=== PATIENT | female | born 1975 | race Caucasian/White ===

== ENCOUNTER 2017-05-22 11:27 | Emergency (ER) | payer BC, OTHER ==
[~2017-05-22] VITALS: Ht 165.1 cm; Wt 128.0 kg
[~2017-05-22 11:27] MED LIST: ALPR0.5T9 PO; AZIT250T PO; CEPH-571 PO; CLIN-80 PO; LEG1EACH88 EXT; LORA10TA65 PO; NAPR375T PO; ONDA8TAB9 PO; OXYC-145 PO
[2017-05-22 12:34] LABS: BASOPHILS % (AUTO) 0.2 % (0-1); EOSINOPHILS # (AUTO) 0.1 X10'3 (0-0.9); EOSINOPHILS % (AUTO) 1.1 % (0-6); HEMOGLOBIN 14.3 g/dl (12.0-16.0); LYMPHOCYTES # (AUTO) 0.6 X10'3 (1.1-4.8); LYMPHOCYTES % (AUTO) 6.8 % (21-51); MEAN CORPUSCULAR HEMOGLOBIN 30.8 PG (27.0-31.0); MEAN CORPUSCULAR VOLUME 90.6 FL (78-98); MEAN PLATELET VOLUME 8.4 FL (7.4-10.4); MONOCYTES # (AUTO) 0.4 X10'3 (0-0.9); MONOCYTES % (AUTO) 4.9 % (2-12); NEUTROPHILS # (AUTO) 7.4 X10'3 (1.8-7.7); PLATELET COUNT 237 X10'3 (140-440); RED BLOOD COUNT 4.64 X10'6 (4.20-5.60); RED CELL DISTRIBUTION WIDTH 12.9 % (11.5-14.5); WHITE BLOOD COUNT 8.5 X10'3 (4.5-11.0)
[2017-05-22 12:50] LABS: ALANINE AMINOTRANSFERASE 33 U/L (12-78); ALBUMIN 3.7 G/DL (3.4-5.0); ALBUMIN/GLOBULIN RATIO 0.9 (1.1-1.5); ALKALINE PHOSPHATASE 104 IU/L (46-116); ANION GAP 7 (8-16); ASPARTATE AMINO TRANSFERASE 20 U/L (10-37); BILIRUBIN,TOTAL 0.4 MG/DL (0.1-1.0); BLOOD UREA NITROGEN 9 MG/DL (7-18); CALCIUM 8.7 MG/DL (8.5-10.1); CHLORIDE 103 MMOL/L (99-107); CREATININE 0.69 MG/DL (0.40-0.90); GLUCOSE 187 MG/DL (70-104); POTASSIUM 4.1 MMOL/L (3.5-5.1); SODIUM 137 MMOL/L (135-145); TOTAL CARBON DIOXIDE 26.7 MMOL/L (24-32); TOTAL PROTEIN 7.7 G/DL (6.4-8.2); eGFR > 90 ML/MIN
[2017-05-22] MEDS ORDERED: ibuprofen 200mg tablet PO ONE (14:05)
[2017-05-22 15:27] VITALS: BP 151/91
== END 2017-05-22 15:29 | disposition home or self-care (01) ==
LOC: ER 11:28
DX: J11.1 Influenza due to unidentified influenza virus with other respiratory manifestations (principal); E11.9 Type 2 diabetes mellitus without complications; Z79.899 Other long term (current) drug therapy; Z88.8 Allergy status to other drugs, medicaments and biological substances; Z87.442 Personal history of urinary calculi
CPT/HCPCS: 36415; 71046; 80053; 85025; 87502; 87503; 99285

== ENCOUNTER 2017-12-27 21:21 | Emergency (ER) | payer BC, MEDICAID ==
[~2017-12-27] VITALS: Ht 165.1 cm; Wt 134.0 kg
[~2017-12-27 21:21] MED LIST changes: -CLIN-80 PO; +CLIN300C85 PO
[2017-12-27] MEDS ORDERED: ondansetron/PF 4mg/2ml inj IV ONE (22:05)
[2017-12-27] MEDS ORDERED: normal saline 1000ML IV soln IVB ONE (22:05)
[2017-12-27] MEDS ORDERED: morphine 4 MG/ML inj SYRINge IV PRN (22:05)
[2017-12-27 22:13] LABS: CLARITY,URINE CLEAR (Clear); COLOR,URINE YELLOW (Yellow); GLUCOSE, URINE NEGATIVE (Neg); KETONES,URINE NEGATIVE (Neg); LEUKOCYTE ESTERASE ,URINE NEGATIVE (Neg); NITRITES, URINE NEGATIVE (Neg); OCCULT BLOOD,URINE NEGATIVE (Neg); PROTEIN,URINE NEGATIVE (Neg); UROBILINOGEN,URINE 0.2 E.U/dL (0.2-1.0)
[2017-12-27 22:14] LABS: URINE HCG NEGATIVE (NEG)
[2017-12-27 22:17] LABS: UA COLLECTION TYPE VOIDED
[2017-12-27 22:22] LABS: BASOPHILS # (AUTO) 0.1 X10'3 (0-0.2); BASOPHILS % (AUTO) 0.7 % (0-1); EOSINOPHILS # (AUTO) 0.1 X10'3 (0-0.9); EOSINOPHILS % (AUTO) 1.4 % (0-6); HEMATOCRIT 42.1 % (35.0-45.0); HEMOGLOBIN 14.1 g/dl (12.0-16.0); LYMPHOCYTES # (AUTO) 3.4 X10'3 (1.1-4.8); LYMPHOCYTES % (AUTO) 35.5 % (21-51); MEAN CORPUSCULAR HEMOGLOBIN 30.4 PG (27.0-31.0); MEAN CORPUSCULAR HGB CONC 33.5 % (33.0-36.5); MEAN CORPUSCULAR VOLUME 90.7 FL (78-98); MEAN PLATELET VOLUME 8.5 FL (7.4-10.4); MONOCYTES # (AUTO) 0.5 X10'3 (0-0.9); MONOCYTES % (AUTO) 5.3 % (2-12); NEUTROPHILS # (AUTO) 5.5 X10'3 (1.8-7.7); NEUTROPHILS % (AUTO) 57.1 % (42-75); PLATELET COUNT 339 X10'3 (140-440); RED BLOOD COUNT 4.64 X10'6 (4.20-5.60); RED CELL DISTRIBUTION WIDTH 12.4 % (11.5-14.5); WHITE BLOOD COUNT 9.6 X10'3 (4.5-11.0)
[2017-12-27 22:37] LABS: ALANINE AMINOTRANSFERASE 36 U/L (12-78); ALBUMIN 3.8 G/DL (3.4-5.0); ALKALINE PHOSPHATASE 102 IU/L (46-116); ANION GAP 8 (8-16); ASPARTATE AMINO TRANSFERASE 14 U/L (10-37); BILIRUBIN,TOTAL 0.3 MG/DL (0.1-1.0); BLOOD UREA NITROGEN 12 MG/DL (7-18); BUN/CREATININE RATIO 12.6 (6.6-38.0); CALCIUM 9.1 MG/DL (8.5-10.1); CHLORIDE 102 MMOL/L (99-107); CREATININE 0.95 MG/DL (0.40-0.90); GLUCOSE 142 MG/DL (70-104); LIPASE 142 U/L (73-393); POTASSIUM 3.5 MMOL/L (3.5-5.1); SODIUM 138 MMOL/L (135-145); TOTAL CARBON DIOXIDE 28.3 MMOL/L (24-32); TOTAL PROTEIN 7.8 G/DL (6.4-8.2); eGFR 65 ML/MIN
[2017-12-27] MEDS ORDERED: morphine 4 MG/ML inj SYRINge IV ONE ×2 (22:55→23:00)
[2017-12-27] MEDS ORDERED: HYDR-3965 PO (23:28)
[2017-12-27] MEDS ORDERED: ketorolac trometh. 30mg/ml inj. IV ONE (23:35)
[2017-12-27 23:57] VITALS: BP 143/91
== END 2017-12-28 00:04 | disposition home or self-care (01) ==
LOC: ER 21:22
DX: N23 Unspecified renal colic (principal); E11.9 Type 2 diabetes mellitus without complications; Z98.890 Other specified postprocedural states; Z88.8 Allergy status to other drugs, medicaments and biological substances; Z79.2 Long term (current) use of antibiotics; Z79.899 Other long term (current) drug therapy
CPT/HCPCS: 36415; 74176; 80053; 81003; 81025; 83690; 85025; 96374; 96375; 96376; 99285; J1885; J2270; J2405; J7030

== ENCOUNTER 2018-03-18 23:10 | Emergency (ER) | payer MEDICAID ==
[~2018-03-18] VITALS: Ht 162.6 cm; Wt 131.0 kg
[2018-03-18 23:43] LABS: BASOPHILS % (AUTO) 0.4 % (0-1); EOSINOPHILS # (AUTO) 0.2 X10'3 (0-0.9); EOSINOPHILS % (AUTO) 1.7 % (0-6); HEMATOCRIT 41.1 % (35.0-45.0); HEMOGLOBIN 13.9 g/dl (12.0-16.0); LYMPHOCYTES # (AUTO) 3.3 X10'3 (1.1-4.8); LYMPHOCYTES % (AUTO) 29.7 % (21-51); MEAN CORPUSCULAR HEMOGLOBIN 30.9 PG (27.0-31.0); MEAN CORPUSCULAR HGB CONC 33.8 % (33.0-36.5); MEAN CORPUSCULAR VOLUME 91.3 FL (78-98); MEAN PLATELET VOLUME 8.1 FL (7.4-10.4); MONOCYTES # (AUTO) 0.8 X10'3 (0-0.9); NEUTROPHILS # (AUTO) 6.8 X10'3 (1.8-7.7); NEUTROPHILS % (AUTO) 61.2 % (42-75); PLATELET COUNT 357 X10'3 (140-440); RED CELL DISTRIBUTION WIDTH 13.1 % (11.5-14.5); WHITE BLOOD COUNT 11.2 X10'3 (4.5-11.0)
[2018-03-18 23:56] LABS: ANION GAP 8 (8-16); BILIRUBIN,TOTAL 0.4 MG/DL (0.1-1.0); BLOOD UREA NITROGEN 12 MG/DL (7-18); CALCIUM 9.5 MG/DL (8.5-10.1); CHLORIDE 103 MMOL/L (99-107); CREATININE 0.86 MG/DL (0.40-0.90); GLUCOSE 237 MG/DL (70-104); POTASSIUM 3.4 MMOL/L (3.5-5.1); SODIUM 139 MMOL/L (135-145); TOTAL CARBON DIOXIDE 27.6 MMOL/L (24-32); TOTAL PROTEIN 7.7 G/DL (6.4-8.2); eGFR 73 ML/MIN
[2018-03-18 23:57] LABS: ALANINE AMINOTRANSFERASE 35 U/L (12-78); ALBUMIN 3.7 G/DL (3.4-5.0); ALBUMIN/GLOBULIN RATIO 0.9 (1.1-1.5); ALKALINE PHOSPHATASE 103 IU/L (46-116); ASPARTATE AMINO TRANSFERASE 15 U/L (10-37)
[2018-03-19] LABS: PROTHROMBIN TIME 10.5 SECONDS (9.0-12.0)
[2018-03-19 00:46] LABS: CLARITY,URINE CLEAR (Clear); COLOR,URINE YELLOW (Yellow); GLUCOSE, URINE 250 mg/dl (Neg); KETONES,URINE TRACE mg/dl (Neg); LEUKOCYTE ESTERASE ,URINE NEGATIVE (Neg); NITRITES, URINE NEGATIVE (Neg); OCCULT BLOOD,URINE LARGE (Neg); PH,URINE 5.5 (4.8-8.0); PROTEIN,URINE NEGATIVE (Neg); UROBILINOGEN,URINE 0.2 E.U/dL (0.2-1.0)
[2018-03-19 00:47] LABS: URINE HCG NEGATIVE (NEG)
[2018-03-19 00:51] LABS: UA COLLECTION TYPE VOIDED
[2018-03-19 00:53] LABS: RBC,URINE 20-50 /HPF (0-2); WBC,URINE 0-4 /HPF (0-4)
[2018-03-19 00:54] LABS: BACTERIA,URINE 1+ /HPF (Neg); SQUAMOUS EPITHELIAL CELL,UR MANY /LPF (FEW)
[2018-03-19 00:55] LABS: MUCUS STRANDS MANY /LPF (Neg)
[2018-03-19 01:04] VITALS: BP 142/75
[2018-03-19] MEDS ORDERED: ketorolac trometh. 30mg/ml inj. IV ONE (01:20)
[2018-03-19] MEDS ORDERED: morphine 4 MG/ML inj SYRINge IV ONE (01:20)
[2018-03-19] MEDS ORDERED: ondansetron/PF 4mg/2ml inj IV ONE ×2 (01:20)
[2018-03-19] MEDS ORDERED: ONDA4TAB9 PO (02:42)
[2018-03-19] MEDS ORDERED: IBUP-1986 PO (02:42)
== END 2018-03-19 02:53 | disposition home or self-care (01) ==
LOC: ER 23:10
DX: N23 Unspecified renal colic (principal); E11.9 Type 2 diabetes mellitus without complications; F41.9 Anxiety disorder, unspecified; Z87.442 Personal history of urinary calculi; Z88.8 Allergy status to other drugs, medicaments and biological substances; Z79.899 Other long term (current) drug therapy
CPT/HCPCS: 36415; 74176; 80053; 81001; 81025; 85025; 85610; 96374; 96375; 96376; 99285; J1885; J2270; J2405

== ENCOUNTER 2021-03-28 07:14 | Day surgery (SDC) | payer MEDICAID ==
[2021-03-22 12:16] LABS: BASOPHILS % (AUTO) 0.3 % (0-1); EOSINOPHILS # (AUTO) 0.1 X10'3 (0-0.9); EOSINOPHILS % (AUTO) 0.9 % (0-6); LYMPHOCYTES # (AUTO) 2.2 X10'3 (1.1-4.8); MEAN CORPUSCULAR HGB CONC 33.9 g/dL (33.0-36.5); MEAN CORPUSCULAR VOLUME 91.3 FL (78-98); MEAN PLATELET VOLUME 8.6 FL (7.4-10.4); MONOCYTES # (AUTO) 0.4 X10'3 (0-0.9); MONOCYTES % (AUTO) 6.8 % (2-12); NEUTROPHILS # (AUTO) 3.8 X10'3 (1.8-7.7); PRE OP HEMATOCRIT 41.9 % (35.0-45.0); PRE OP HEMOGLOBIN 14.2 g/dL (12.0-16.0); PRE OP PLATELET COUNT 310 X10'3 (140-440); RED CELL DISTRIBUTION WIDTH 12.9 % (11.5-14.5)
[2021-03-22 12:23] LABS: ALBUMIN 3.6 G/DL (3.4-5.0); ALBUMIN/GLOBULIN RATIO 0.9 (1.1-1.5); ALKALINE PHOSPHATASE 105 IU/L (46-116); BLOOD UREA NITROGEN 9 MG/DL (7-18); BUN/CREATININE RATIO 13.4 (6.6-38.0); CALCIUM 8.7 MG/DL (8.5-10.1); CHLORIDE 105 MMOL/L (99-107); CREATININE 0.67 MG/DL (0.40-0.90); HCG SERUM QL NEGATIVE; PRE OP ALT 39 U/L (30-65); PRE OP ANION GAP 11 (8-16); PRE OP AST 15 U/L (10-37); PRE OP BILIRUB, TOTAL 0.4 MG/DL (0.0-1.0); PRE OP GLUCOSE 192 MG/DL (70-104); PRE OP POTASSIUM 3.9 MMOL/L (3.4-5.1); PRE OP SODIUM 142 MMOL/L (135-145); TOTAL PROTEIN 7.6 G/DL (6.4-8.2); eGFR > 90 ML/MIN
[~2021-03-28] VITALS: Ht 162.6 cm; Wt 136.9 kg
[2021-03-28] VITALS (10 sets, daily range): BP systolic 131–155; BP diastolic 78–88
[~2021-03-28 07:14] MED LIST changes: -AZIT250T PO; -CEPH-571 PO; -CLIN300C85 PO; -LEG1EACH88 EXT; -LORA10TA65 PO; -NAPR375T PO; -ONDA8TAB9 PO; -OXYC-145 PO; +VANCOMYCIN 1,500MG inj. 1,500 MG in normal saline 500ml IV soln 300 ML IV ONE; +ceFAZolin inj. 3,000 MG in normal saline 100ml IV soln 100 ML IV ONE; +famotidine 20mg tablet PO ONE; +ringers solution, lacted 1,000 ML IV SCH
[2021-03-28] MEDS ORDERED: BUPIVAcaine/PF 2.5 mg/ml (0.25%) 30ml vial ONE (08:50)
[2021-03-28] MEDS ORDERED: triamcinolone acetonide 40mg/ml inj ONE (08:51)
[2021-03-28] MEDS ORDERED: succinylcholine 20mg/ml inj IV ONE (09:00)
[2021-03-28] MEDS ORDERED: LIDOcaine 2% (20mg/ml) 5ml vial ONE ×3 (09:00→09:01)
[2021-03-28] MEDS ORDERED: propofol inj 20 ML IV ONE (09:01)
[2021-03-28] MEDS ORDERED: MIDAZolam 1 MG/ML 5ML VIAL ONE (09:03)
[2021-03-28] MEDS ORDERED: fentaNYL/PF 50MCG/1 ML 2ML syringe ONE (09:03)
[2021-03-28] MEDS ORDERED: dexamethasone sod phosphate 4mg/ml inj. ONE (09:51)
[2021-03-28] MEDS ORDERED: ondansetron/PF 4mg/2ml inj ONE (09:53)
[2021-03-28] MEDS ORDERED: labetalol 20mg/4ml (5mg/ml) syringe IV ONE (09:55)
[2021-03-28] MEDS ORDERED: hydrALAZINE 20mg/ml inj. IV PRN (10:10)
[2021-03-28] MEDS ORDERED: morphine 2 MG/ML inj. syringe IV PRN (10:10)
[2021-03-28] MEDS ORDERED: ringers solution, lacted 1,000 ML IV SCH (10:10)
[2021-03-28] MEDS ORDERED: ondansetron/PF 4mg/2ml inj IV PRN (10:10)
[2021-03-28] MEDS ORDERED: fentaNYL/PF 50MCG/1 ML 2ML syringe IV PRN ×2 (10:10)
[2021-03-28] MEDS ORDERED: labetalol 20mg/4ml (5mg/ml) syringe IV PRN (10:10)
--- NOTE | 2021-03-28 10:49 | NUR ---
Received from OR via [facility] , accompanied by Anesthesiologist CHAPITO and report given by Anesthesiolgist. PATIENT WITH 20G PIV IN LEFT UE RUNNING LR AT 10. MEDICATED FOR PAIN UPON ARRIVAL . VSS. BIAS DRESSING TO LEFT KNEE. + DP TO LEFT FOOT. Addendum: 03/28/21 at 1057 by Nahid Self RN, RN Amended: Links added.
[2021-03-28] MEDS: morphine 4 MG/ML inj SYRINge IV PRN ×2 (10:52→11:33)
[2021-03-28] MEDS ORDERED: HYDROcodone/acetaminophen 10/325mg tab PO ONE (11:25)
--- NOTE | 2021-03-28 12:39 | NUR ---
ALL DISCHARGE CRITERIA HAS BEEN MET. VSS, PAIN AT A TOLERABLE LEVEL, VOIDING AND ABLE TO SAFELY TRANSFER SELF. IV TAKEN OUT WITHOUT ANY COMPLICATIONS. ALL DISCHARGE INSTRUCTIONS COVERED WITH PATIENT AND ALL QUESTIONS ANSWERED. PATIENT TAKEN OUT VIA WHEELCHAIR TO PERSONAL VEHICLE WHERE FAMILY/FRIEND DROVE PATIENT HOME. Addendum: 03/28/21 at 1252 by Nahid Self RN, RN Amended: Links added.
== END 2021-03-28 12:39 | disposition home or self-care (01) ==
LOC: PAS 07:14
PROVIDERS: ATTEND Orthopaedic Surgery
DX: S83.232A Complex tear of medial meniscus, current injury, left knee, initial encounter (principal); S83.272A Complex tear of lateral meniscus, current injury, left knee, initial encounter; M17.12 Unilateral primary osteoarthritis, left knee; M94.262 Chondromalacia, left knee; F40.01 Agoraphobia with panic disorder; F41.9 Anxiety disorder, unspecified; E66.01 Morbid (severe) obesity due to excess calories; Z68.43 Body mass index [BMI] 50.0-59.9, adult; E11.59 Type 2 diabetes mellitus with other circulatory complications; Z79.899 Other long term (current) drug therapy; Z20.822 Contact with and (suspected) exposure to COVID-19; Z88.8 Allergy status to other drugs, medicaments and biological substances; Z72.89 Other problems related to lifestyle; Z98.890 Other specified postprocedural states; X58.XXXA Exposure to other specified factors, initial encounter; Y93.89 Activity, other specified; Y92.89 Other specified places as the place of occurrence of the external cause; Y99.8 Other external cause status
CPT/HCPCS: 29873; 29879; 29880; 36415; 80053; 82948; 84703; 85025; 93005; J0330; J0690; J1100; J2001; J2250; J2270; J2405; J2704; J3010; J3301; J3370; J3490; J7040; U0003; U0005; Z7506; Z7508; Z7512; A4215; A4618; A6250; A6449; A7000; J7120

== ENCOUNTER 2021-05-03 13:58 | Inpatient (IN) | payer MEDICAID ==
[~2021-05-03] VITALS: Ht 162.6 cm; Wt 125.0 kg
[~2021-05-03 13:58] MED LIST changes: -VANCOMYCIN 1,500MG inj. 1,500 MG in normal saline 500ml IV soln 300 ML IV ONE; -ceFAZolin inj. 3,000 MG in normal saline 100ml IV soln 100 ML IV ONE; -famotidine 20mg tablet PO ONE; -ringers solution, lacted 1,000 ML IV SCH
[2021-05-03 15:43] LABS: BASOPHILS % (AUTO) 0.3 % (0-1); EOSINOPHILS % (AUTO) 0.6 % (0-6); HEMATOCRIT 40.5 % (35.0-45.0); LYMPHOCYTES # (AUTO) 1.9 X10'3 (1.1-4.8); LYMPHOCYTES % (AUTO) 25.2 % (21-51); MEAN CORPUSCULAR HEMOGLOBIN 31.3 PG (27.0-31.0); MEAN CORPUSCULAR HGB CONC 34.5 g/dL (33.0-36.5); MEAN CORPUSCULAR VOLUME 90.6 FL (78-98); MEAN PLATELET VOLUME 8.6 FL (7.4-10.4); MONOCYTES # (AUTO) 0.5 X10'3 (0-0.9); MONOCYTES % (AUTO) 6.6 % (2-12); NEUTROPHILS % (AUTO) 67.3 % (42-75); PLATELET COUNT 337 X10'3 (140-440); RED BLOOD COUNT 4.47 X10'6 (4.20-5.60); RED CELL DISTRIBUTION WIDTH 12.8 % (11.5-14.5); WHITE BLOOD COUNT 7.5 X10'3 (4.5-11.0)
[2021-05-03 15:54] LABS: ALANINE AMINOTRANSFERASE 32 U/L (12-78); ALBUMIN 3.8 G/DL (3.4-5.0); ALKALINE PHOSPHATASE 110 IU/L (46-116); ANION GAP 10 (8-16); ASPARTATE AMINO TRANSFERASE 14 U/L (10-37); BILIRUBIN,TOTAL 0.5 MG/DL (0.1-1.0); BLOOD UREA NITROGEN 12 MG/DL (7-18); BUN/CREATININE RATIO 17.9 (6.6-38.0); CALCIUM 9.1 MG/DL (8.5-10.1); CHLORIDE 102 MMOL/L (99-107); CREATININE 0.67 MG/DL (0.40-0.90); GLUCOSE 175 MG/DL (70-104); POTASSIUM 3.9 MMOL/L (3.5-5.1); SODIUM 139 MMOL/L (135-145); TOTAL CARBON DIOXIDE 27.1 MMOL/L (24-32); TOTAL PROTEIN 7.7 G/DL (6.4-8.2); eGFR > 90 ML/MIN
[2021-05-03] MEDS ORDERED: aspirin 81mg tab.chew PO ONE (20:15)
--- NOTE | 2021-05-03 20:45 | NUR ---
Pt placed in room 10.
[2021-05-03] MEDS ORDERED: temazepam 15mg capsule PO PRN (21:00)
[2021-05-03] MEDS ORDERED: iohexol 350MG/ML 100ml bottle IV ONE (21:04)
[2021-05-03] MEDS ORDERED: LORazepam 2 mg/ml vial IV ONE (21:15)
[2021-05-03] MEDS ORDERED: heparin 10,000 units/1 ML INJ IV PRN ×2 (22:15→22:30)
[2021-05-03] MEDS ORDERED: heparin 10,000 units/1 ML INJ IV ONE ×2 (22:15→22:20)
[2021-05-03] MEDS ORDERED: glucagon, human recombinant 1mg kit SUBCUT PRN (22:30)
[2021-05-03] MEDS ORDERED: magnesium 4gm in 100ml NS 100 ML IV PRN (22:30)
[2021-05-03] MEDS ORDERED: morphine 2 MG/ML inj. syringe IV PRN ×2 (22:30)
[2021-05-03] MEDS ORDERED: MESSAGE TO PHARMACY PO ONE (22:30)
[2021-05-03] MEDS ORDERED: nitroGLYCERIN 0.4mg SUBLingual tab SL PRN (22:30)
[2021-05-03] MEDS ORDERED: HYDROcodone/acetaminophen 10/325mg tab PO PRN (22:30)
[2021-05-03] MEDS ORDERED: potassium Cl 20 mEq SR tablet PO PRN (22:30)
[2021-05-03] MEDS ORDERED: dextrose ORAL solution 15 GM/59 ML bottle PO PRN ×2 (22:30)
[2021-05-03] MEDS ORDERED: heparin 25,000 UNIT/250ml bag 250 ML IV SCH (22:30)
[2021-05-03] MEDS ORDERED: acetaminophen 325mg tablet PO PRN ×2 (22:30)
[2021-05-03] MEDS ORDERED: potassium CL 10mEq/100ml bag 100 ML IV PRN (22:30)
[2021-05-03] MEDS ORDERED: dextrose 50%-water 50ml dispensing syringe IV PRN ×2 (22:30)
[2021-05-03] MEDS ORDERED: aminophylline 250mg/10ml inj. IV PRN (22:30)
[2021-05-03] MEDS ORDERED: magnesium 2GM in 50ml NS 50 ML IV PRN (22:30)
[2021-05-03] MEDS ORDERED: regadenoson 0.4mg/5ml syringe IV PRN (22:30)
[2021-05-03] MEDS ORDERED: magnesium Cl slow-release 64mg tablet PO PRN (22:30)
[2021-05-03] MEDS ORDERED: magnesium hydroxide 30ml (MOM) UD suspension PO PRN (22:30)
[2021-05-03] MEDS ORDERED: ondansetron/PF 4mg/2ml inj IV PRN (22:30)
[2021-05-03] MEDS ORDERED: metoprolol tartrate 1mg/ml inj IV PRN (22:30)
[2021-05-03] MEDS ORDERED: HYDROcodone/acetaminophen 5mg/325mg tablet PO PRN (22:30)
[2021-05-03 23:07] LABS: HEMOGLOBIN A1C 7.7 % (4.5-6.2)
[2021-05-04] MEDS: heparin 25,000 UNIT/250ml bag 250 ML IV SCH ×3 (00:07→23:15)
[2021-05-04 00:49] LABS: PARTIAL THROMBOPLASTIN TIME 27 SECONDS (22-32)
[2021-05-04] MEDS: normal saline 1000ml 1,000 ML IV SCH ×3 (01:22→18:30)
--- NOTE | 2021-05-04 07:34 | NUR ---
Nuclear Medicine requires additional troponin for ECHO study today; order placed.
[2021-05-04] MEDS: pantoprazole 40mg Tablet.DR PO SCH (07:50)
[2021-05-04] MEDS: K and/or MAG REPLACEMENT MC SCH ×2 (08:00→20:00)
[2021-05-04] MEDS ORDERED: PERFLUTREN PROTEIN-A MICROSPHR (Optison) 0.22 MG/ML 3ML VIAL IV ONE (08:00)
--- NOTE | 2021-05-04 08:37 | NUR ---
PTT and Troponin drawn
[2021-05-04 09:04] LABS: PARTIAL THROMBOPLASTIN TIME 31 SECONDS (22-32)
[2021-05-04 09:06] LABS: ALANINE AMINOTRANSFERASE 32 U/L (12-78); ALBUMIN 3.4 G/DL (3.4-5.0); ALKALINE PHOSPHATASE 95 IU/L (46-116); ANION GAP 11 (8-16); ASPARTATE AMINO TRANSFERASE 27 U/L (10-37); BILIRUBIN,TOTAL 0.4 MG/DL (0.1-1.0); BLOOD UREA NITROGEN 12 MG/DL (7-18); BUN/CREATININE RATIO 18.2 (6.6-38.0); CALCIUM 8.3 MG/DL (8.5-10.1); CHLORIDE 104 MMOL/L (99-107); CREATININE 0.66 MG/DL (0.40-0.90); GLUCOSE 202 MG/DL (70-104); POTASSIUM 3.7 MMOL/L (3.5-5.1); SODIUM 140 MMOL/L (135-145); TOTAL CARBON DIOXIDE 25.1 MMOL/L (24-32); TOTAL PROTEIN 6.8 G/DL (6.4-8.2); eGFR > 90 ML/MIN
--- NOTE | 2021-05-04 09:49 | NUR ---
ECHO called: unable to do ECHO until troponin is trending down. Attending to be notified.
[2021-05-04 18:00] LABS: BASOPHILS # (AUTO) 0.1 X10'3 (0-0.2); BASOPHILS % (AUTO) 1.2 % (0-1); EOSINOPHILS # (AUTO) 0.1 X10'3 (0-0.9); EOSINOPHILS % (AUTO) 0.8 % (0-6); HEMATOCRIT 40.2 % (35.0-45.0); LYMPHOCYTES # (AUTO) 2.7 X10'3 (1.1-4.8); LYMPHOCYTES % (AUTO) 43.4 % (21-51); MEAN CORPUSCULAR HEMOGLOBIN 31.6 PG (27.0-31.0); MEAN CORPUSCULAR HGB CONC 34.7 g/dL (33.0-36.5); MEAN PLATELET VOLUME 8.7 FL (7.4-10.4); MONOCYTES # (AUTO) 0.4 X10'3 (0-0.9); MONOCYTES % (AUTO) 6.4 % (2-12); NEUTROPHILS % (AUTO) 48.2 % (42-75); PLATELET COUNT 318 X10'3 (140-440); RED BLOOD COUNT 4.42 X10'6 (4.20-5.60); RED CELL DISTRIBUTION WIDTH 12.8 % (11.5-14.5); WHITE BLOOD COUNT 6.3 X10'3 (4.5-11.0)
[2021-05-04] MEDS: ALPRAZolam 0.5mg tablet PO PRN (19:00)
[2021-05-04] MEDS: insulin glargine (Lantus) pen - multi-dose SQ SCH (21:00)
--- NOTE | 2021-05-04 22:00 | NUR ---
Patient in room MED 309. I have received report from TONI RIVERS and had the opportunity to ask questions and assume patient care.
[2021-05-04 22:58] VITALS: BP 158/95
[2021-05-05] VITALS (12 sets, daily range): BP systolic 123–168; BP diastolic 68–99
--- NOTE | 2021-05-05 02:34 | NUR ---
309a sylvester davis-critical trop-730; has echo/barbara in am. , jennifer [id number]
[2021-05-05] MEDS: heparin 25,000 UNIT/250ml bag 250 ML IV SCH (03:36)
[2021-05-05] MEDS: normal saline 1000ml 1,000 ML IV SCH ×2 (04:30→17:25)
--- NOTE | 2021-05-05 06:24 | NUR ---
Problems reprioritized. Patient report given, questions answered & plan of care reviewed with Traci RIVERS.
--- NOTE | 2021-05-05 06:33 | NUR ---
Patient in room MED 309. I have received report from SILVESTRE Gonzalez and had the opportunity to ask questions and assume patient care.
[2021-05-05] MEDS: ALPRAZolam 0.5mg tablet PO PRN (07:14)
[2021-05-05] MEDS: pantoprazole 40mg Tablet.DR PO SCH (07:14)
[2021-05-05 07:35] LABS: BASOPHILS % (AUTO) 0.4 % (0-1); EOSINOPHILS # (AUTO) 0.1 X10'3 (0-0.9); EOSINOPHILS % (AUTO) 1.1 % (0-6); HEMATOCRIT 35.8 % (35.0-45.0); HEMOGLOBIN 12.5 g/dl (12.0-16.0); LYMPHOCYTES # (AUTO) 2.8 X10'3 (1.1-4.8); LYMPHOCYTES % (AUTO) 45.7 % (21-51); MEAN CORPUSCULAR HEMOGLOBIN 31.8 PG (27.0-31.0); MEAN CORPUSCULAR HGB CONC 34.8 g/dL (33.0-36.5); MEAN CORPUSCULAR VOLUME 91.5 FL (78-98); MEAN PLATELET VOLUME 9.1 FL (7.4-10.4); MONOCYTES # (AUTO) 0.6 X10'3 (0-0.9); NEUTROPHILS # (AUTO) 2.7 X10'3 (1.8-7.7); NEUTROPHILS % (AUTO) 43.8 % (42-75); PLATELET COUNT 297 X10'3 (140-440); RED BLOOD COUNT 3.92 X10'6 (4.20-5.60); RED CELL DISTRIBUTION WIDTH 13.1 % (11.5-14.5); WHITE BLOOD COUNT 6.2 X10'3 (4.5-11.0)
[2021-05-05 07:38] LABS: ALANINE AMINOTRANSFERASE 31 U/L (12-78); ALBUMIN 3.6 G/DL (3.4-5.0); ALKALINE PHOSPHATASE 95 IU/L (46-116); ANION GAP 11 (8-16); ASPARTATE AMINO TRANSFERASE 24 U/L (10-37); BILIRUBIN,TOTAL 0.3 MG/DL (0.1-1.0); BLOOD UREA NITROGEN 8 MG/DL (7-18); BUN/CREATININE RATIO 12.3 (6.6-38.0); CHLORIDE 103 MMOL/L (99-107); CREATININE 0.65 MG/DL (0.40-0.90); GLUCOSE 190 MG/DL (70-104); POTASSIUM 3.4 MMOL/L (3.5-5.1); SODIUM 139 MMOL/L (135-145); TOTAL CARBON DIOXIDE 25.2 MMOL/L (24-32); TOTAL PROTEIN 7.1 G/DL (6.4-8.2); eGFR > 90 ML/MIN
[2021-05-05] MEDS: K and/or MAG REPLACEMENT MC SCH ×2 (08:00→20:00)
[2021-05-05] MEDS ORDERED: aspirin 81mg, enteric-coated 1 TAB TABLET.DR PO SCH (08:00)
[2021-05-05] MEDS ORDERED: LORazepam 2 mg/ml vial IV ONE (09:05)
[2021-05-05 09:13] LABS: CHOL/HDL RATIO 4.3 (0.00-4.99); CHOLESTEROL 197 MG/DL (0-200); HDL CHOLESTEROL 46 MG/DL (35-60); LDL CHOLESTEROL 113 MG/DL (50-100); TRIGLYCERIDES 209 MG/DL (20-135)
[2021-05-05] MEDS ORDERED: regadenoson 0.4mg/5ml syringe IV PRN (10:55)
--- NOTE | 2021-05-05 11:41 | NUR ---
Noted pt with T2DM, fairly well controlled with A1c 7.7%. Per EMR DM is diet controlled and pt takes medications PRN. Attempted visit with pt at bedside however pt unavailable. Written DM education with RD contact information placed at patient's bedside. Will remain available. Addendum: 05/05/21 at [address] Amended: Links added.
[2021-05-05] MEDS: potassium Cl 20 mEq SR tablet PO PRN ×3 (12:45→21:19)
--- NOTE | 2021-05-05 14:37 | NUR ---
Note sent to Dr Saul: 309 [address]: please call nuc med perfusion imaging - critical result [phone]. thank you. Cheli RIVERS [id number]
--- NOTE | 2021-05-05 15:05 | NUR ---
msg sent to [facility] [address]: pt qualifies for insulin protocol now. please send insulin so i may start giving to pt as soon as possible. thank you. Cheli RIVERS [id number]
[2021-05-05 16:04] LABS: PARTIAL THROMBOPLASTIN TIME 67 SECONDS (22-32)
[2021-05-05] MEDS ORDERED: glucagon, human recombinant 1mg kit SUBCUT PRN (16:35)
[2021-05-05] MEDS ORDERED: dextrose 50%-water 50ml dispensing syringe IV PRN ×2 (16:35)
[2021-05-05] MEDS ORDERED: insulin Lispro (HumaLOG) vial - multi-dose SQ SCH (16:35)
[2021-05-05] MEDS ORDERED: dextrose ORAL solution 15 GM/59 ML bottle PO PRN ×2 (16:35)
[2021-05-05] MEDS ORDERED: MESSAGE TO PHARMACY PO ONE (16:35)
[2021-05-05] MEDS ORDERED: aspirin 81mg, enteric-coated 1 TAB TABLET.DR PO ONE (16:35)
--- NOTE | 2021-05-05 18:19 | NUR ---
Problems reprioritized. Patient report given, questions answered & plan of care reviewed with SILVESTRE Grove.
[2021-05-05] MEDS ORDERED: LORazepam 2 mg/ml vial IV PRN (18:35)
[2021-05-05] MEDS: insulin Lispro (HumaLOG) vial - multi-dose SQ SCH (18:43)
[2021-05-05] MEDS: LORazepam 1 MG tablet PO PRN ×2 (19:27→23:25)
[2021-05-05] MEDS: metoprolol tartrate 12.5mg (1/2 tablet) PO SCH (19:27)
[2021-05-05] MEDS ORDERED: insulin glargine (Lantus) pen - multi-dose SQ SCH (21:00)
[2021-05-05] MEDS: insulin glargine (Lantus) pen - multi-dose SQ SCH (21:19)
[2021-05-06] MEDS: heparin 25,000 UNIT/250ml bag 250 ML IV SCH (00:15)
[2021-05-06] MEDS: normal saline 1000ml 1,000 ML IV SCH (00:30)
[2021-05-06] MEDS ORDERED: temazepam 15mg capsule PO ONE (00:45)
[2021-05-06 04:51] LABS: BASOPHILS % (AUTO) 0.4 % (0-1); EOSINOPHILS # (AUTO) 0.1 X10'3 (0-0.9); EOSINOPHILS % (AUTO) 1.3 % (0-6); HEMATOCRIT 37.3 % (35.0-45.0); HEMOGLOBIN 12.6 g/dl (12.0-16.0); LYMPHOCYTES % (AUTO) 46.6 % (21-51); MEAN CORPUSCULAR HEMOGLOBIN 31.1 PG (27.0-31.0); MEAN CORPUSCULAR HGB CONC 33.9 g/dL (33.0-36.5); MEAN CORPUSCULAR VOLUME 91.8 FL (78-98); MEAN PLATELET VOLUME 8.4 FL (7.4-10.4); MONOCYTES # (AUTO) 0.6 X10'3 (0-0.9); NEUTROPHILS # (AUTO) 2.8 X10'3 (1.8-7.7); NEUTROPHILS % (AUTO) 42.7 % (42-75); PLATELET COUNT 306 X10'3 (140-440); RED BLOOD COUNT 4.07 X10'6 (4.20-5.60); RED CELL DISTRIBUTION WIDTH 13.1 % (11.5-14.5); WHITE BLOOD COUNT 6.5 X10'3 (4.5-11.0)
[2021-05-06 05:04] LABS: ALANINE AMINOTRANSFERASE 42 U/L (12-78); ALBUMIN 3.4 G/DL (3.4-5.0); ALBUMIN/GLOBULIN RATIO 0.9 (1.1-1.5); ALKALINE PHOSPHATASE 93 IU/L (46-116); ANION GAP 10 (8-16); ASPARTATE AMINO TRANSFERASE 27 U/L (10-37); BILIRUBIN,TOTAL 0.4 MG/DL (0.1-1.0); BLOOD UREA NITROGEN 7 MG/DL (7-18); BUN/CREATININE RATIO 8.9 (6.6-38.0); CALCIUM 8.9 MG/DL (8.5-10.1); CHLORIDE 104 MMOL/L (99-107); CREATININE 0.79 MG/DL (0.40-0.90); GLUCOSE 167 MG/DL (70-104); POTASSIUM 3.8 MMOL/L (3.5-5.1); SODIUM 141 MMOL/L (135-145); eGFR 79 ML/MIN
[2021-05-06] MEDS ORDERED: LORazepam 1 MG tablet PO ONE (06:00)
[2021-05-06] MEDS ORDERED: diphenhydrAMINE 25mg capsule PO ONE (06:00)
--- NOTE | 2021-05-06 06:44 | NUR ---
Problems reprioritized. Patient report given, questions answered & plan of care reviewed with SILVESTRE ISIDRO.
[2021-05-06] MEDS: K and/or MAG REPLACEMENT MC SCH (07:05)
[2021-05-06] MEDS: pantoprazole 40mg Tablet.DR PO SCH (07:06)
[2021-05-06] MEDS ORDERED: fentaNYL/PF 50MCG/1 ML 2ML syringe ONE (07:27)
[2021-05-06] MEDS ORDERED: midazolam 1 mg/ML 2ml injection ONE ×2 (07:28→08:39)
[2021-05-06] MEDS ORDERED: iohexol 350MG/ML 100ml bottle IV ONE (07:28)
[2021-05-06] MEDS ORDERED: heparin 1,000unit/ml 10ml vial 10 ML ONE (07:28)
[2021-05-06] MEDS ORDERED: LIDOcaine 1% (10mg/ml)w/preservative injection 20ml MDV ONE (07:28)
[2021-05-06] MEDS ORDERED: iohexol 350 MG/ML 50ML vial IV ONE (07:28)
[2021-05-06] MEDS ORDERED: verapamil 2.5 mg/ml inj IV ONE (07:29)
[2021-05-06] MEDS ORDERED: nitroGLYCERIN-Tridil 50MG/D5W 250 ML IV ONE (07:41)
[2021-05-06] MEDS: insulin Lispro (HumaLOG) vial - multi-dose SQ SCH (07:45)
[2021-05-06] MEDS ORDERED: aspirin 81mg, enteric-coated 1 TAB TABLET.DR PO SCH (08:00)
[2021-05-06] MEDS ORDERED: diphenhydrAMINE 50 mg/ml inj ONE (08:30)
[2021-05-06] MEDS ORDERED: HYDROmorphone 1 mg/ml syringe ONE (08:39)
[2021-05-06 09:12] LABS: ISTAT HGB ART 12.9 g/dl (12.0-16.0); ISTAT Hct ART 38 %PCV (35-48); ISTAT O2 SATURATION ARTERIAL 98 % (95-98); ISTAT SOURCE ART
[2021-05-06 09:18] LABS: ISTAT Hct MIX 36 %PCV (35-48); ISTAT O2 SATURATION MIX VENOUS 71 % (60-80); ISTAT SOURCE VEN
[2021-05-06] MEDS ORDERED: normal saline 1000ml 1,000 ML IV SCH (09:50)
[2021-05-06 10:33] VITALS: BP_SYST 140
[2021-05-06] MEDS: metoprolol tartrate 12.5mg (1/2 tablet) PO SCH (10:33)
[2021-05-06] MEDS ORDERED: APIX5TAB3 PO ×2 (13:15)
--- NOTE | 2021-05-06 13:56 | NUR ---
PT DISCHARGED IN STABLE CONDITION IN PRIVATE VEHICLE WITH . IV DC CANULA INTACT. ALL BELONGINGS IN HAND. FOLLOW UP INSTRUCTIONS GIVEN. Addendum: 05/06/21 at 1357 by Abeba Lehman RN Amended: Links added.
[2021-05-06] MEDS ORDERED: CARV3.12 PO (18:10)
[2021-05-06] MEDS ORDERED: ATOR10TA87 PO (18:10)
[2021-05-06] MEDS ORDERED: ASPI81TA52 PO (18:10)
[2021-05-06] MEDS ORDERED: apixaban 5mg tablet PO SCH (20:00)
== END 2021-05-06 14:10 | disposition home or self-care (01) | DRG 134 ==
LOC: ER 13:58 → ED HOLD 22:33 → MED 3N 05-04 22:56
PROVIDERS: ADMIT Internal Medicine; ATTEND Family Medicine
PROC: B32T1ZZ Computerized Tomography (CT Scan) of Left Pulmonary Artery using Low Osmolar Contrast (ICD-10-PCS; 2021-05-03)
PROC: B3201ZZ Computerized Tomography (CT Scan) of Thoracic Aorta using Low Osmolar Contrast (ICD-10-PCS; 2021-05-03)
PROC: B32S1ZZ Computerized Tomography (CT Scan) of Right Pulmonary Artery using Low Osmolar Contrast (ICD-10-PCS; 2021-05-03)
PROC: 4A02XM4 Measurement of Cardiac Total Activity, External Approach (ICD-10-PCS; 2021-05-05)
PROC: 3E073KZ Introduction of Other Diagnostic Substance into Coronary Artery, Percutaneous Approach (ICD-10-PCS; 2021-05-05)
PROC: 4A023N8 Measurement of Cardiac Sampling and Pressure, Bilateral, Percutaneous Approach (ICD-10-PCS; principal; 2021-05-06)
PROC: B2111ZZ Fluoroscopy of Multiple Coronary Arteries using Low Osmolar Contrast (ICD-10-PCS; 2021-05-06)
PROC: B2151ZZ Fluoroscopy of Left Heart using Low Osmolar Contrast (ICD-10-PCS; 2021-05-06)
DX: I26.93 Single subsegmental thrombotic pulmonary embolism without acute cor pulmonale (principal); I21.A1 Myocardial infarction type 2; I31.3 Pericardial effusion (noninflammatory); E11.9 Type 2 diabetes mellitus without complications; E78.5 Hyperlipidemia, unspecified; F41.1 Generalized anxiety disorder; Z20.822 Contact with and (suspected) exposure to COVID-19; E66.01 Morbid (severe) obesity due to excess calories; Z79.82 Long term (current) use of aspirin; Z79.899 Other long term (current) drug therapy; Z82.3 Family history of stroke; Z82.49 Family history of ischemic heart disease and other diseases of the circulatory system; Z83.3 Family history of diabetes mellitus; Z86.32 Personal history of gestational diabetes; Z87.442 Personal history of urinary calculi; Z87.891 Personal history of nicotine dependence; Z98.891 History of uterine scar from previous surgery; Z68.42 Body mass index [BMI] 45.0-49.9, adult; Z88.8 Allergy status to other drugs, medicaments and biological substances
CPT/HCPCS: 36415; 71045; 71275; 76937; 78452; 80053; 80061; 82803; 82948; 83036; 83880; 84484; 85014; 85025; 85730; 87081; 87635; 93005; 93017; 93306; 93460; 93970; 96374; 99152; 99153; 99285; A4620; A5120; A9500; C1751; C1769; C1894; G0378; J1170; J1200; J1644; J1815; J2060; J2250; J2270; J3010; J3490; J7030; Q0163; Q9967

== ENCOUNTER 2025-01-13 20:58 | Emergency (ER) | payer MEDICAID ==
[~2025-01-13] VITALS: Ht 165.1 cm; Wt 130.4 kg
[~2025-01-13 20:58] MED LIST changes: +APIX5TAB3 PO; +CARV3.12 PO
--- NOTE | 2025-01-14 00:06 | Physician Documentation ---
History of Present Illness ~ Chief Complaint: Headache Stated Complaint: HEAD PAIN Time Seen by MD: 23:50 Primary Medical Doctor: MARY KIM HPI Patient presents to the emergency room for evaluation of headache that began this afternoon. She took some Tylenol a proximally 10 hours ago with little effect. She does describe the headache as the worst he has ever had. No fevers. Headache located in posterior left head Medication Reconciliation Allergies: Coded Allergies: metformin (Verified Allergy, Unknown, 01/13/25) Scheduled Apixaban (Eliquis), 5 MG PO BID Apixaban (Eliquis), 10 MG PO BID Carvedilol (Coreg), 1 TAB PO Q12H Scheduled PRN Alprazolam (Alprazolam), 1 TAB PO TID PRN PRN for for anxiety/agitation, (Reported) Past Medical History Past Medical History: Kidney Stones, Diabetes, Anxiety Past Surgical History: Alcohol Use: None Drug Use: none Lives with: Spouse Lives In: Home Occupation: other Review of Systems ROS All review of systems negative except as per HPI Physical Exam Vital Signs: Temperature: 96.9, Source: Temporal, Heart Rate: 80, Respiratory Rate: 16, BP: 139/82, Pulse Oximetry: 99, Weight: 130.450 Oxygen Flow Rate: 0 Physical Exam General: Patient is awake, alert, oriented x4 in mild distress Head: Normocephalic and atraumatic. No tenderness to palpation to temporal arteries Eyes: Conjunctival normal. EOMI. PERRL. ENT: Mucous membranes moist. Neck: Supple, trachea is midline. Chest: Clear to auscultation bilaterally without rales, rhonchi, or wheezes. There is no accessory muscle use or retractions. Cardiac: RRR without murmurs, gallops, or rubs. Progress Results/Orders Results/Orders Orders - JONI DELGADO MD Ct Head (01/13/25 23:51) Completed Orders - JONI DELGADO MD Ct Head (01/13/25 23:51) Normal Saline 1000ml (0.9% Sodium Chlori (01/14/25 00:10) Metoclopramide Inj (Reglan Inj) (01/14/25 00:10) Diphenhydramine Inj (Benadryl Inj.) (01/14/25 00:10) Acetaminophen 1,000mg/100ml Iv (Ofirmev (01/14/25 00:10) Ketorolac Trometh 15mg/Ml Vial (Toradol (01/14/25 01:00) Medications Received in ER Medications (Trade) Dose Ordered Sig/Lay Route PRN Reason Start Time Stop Time Status Last Admin Dose Admin Sodium Chloride 1,000 ml @ 1,000 mls/hr ONCE ONCE IV 01/14/25 00:10 01/14/25 01:09 DC 01/14/25 00:25 1,000 MLS/HR (Reglan inj) 10 mg ONCE ONCE IV 01/14/25 00:10 01/14/25 00:11 DC 01/14/25 00:26 10 MG (Benadryl inj.) 25 mg ONCE ONCE IV 01/14/25 00:10 01/14/25 00:11 DC 01/14/25 00:26 25 MG Acetaminophen 100 ml @ 400 mls/hr ONCE ONCE IV 01/14/25 00:10 01/14/25 00:24 DC 01/14/25 00:26 400 MLS/HR (Toradol injection) 15 mg ONCE ONCE IV 01/14/25 01:00 01/14/25 01:01 DC 01/14/25 01:05 15 MG Vital Signs 01/13/25 01/13/25 01/13/25 01/14/25 21:14 22:20 23:12 01:05 Temp 96.9 Pulse 95 89 80 Resp 16 15 16 14 B/P (MAP) 170/102 149/76 (100) 139/82 (101) Pulse Ox 99 99 99 O2 Flow Rate 0 Medical Decision Making Findings Patient presented to the emergency room for evaluation of headache. Headache was described as worst of her life therefore CT scan indicated which was reassuring. Patient's headache is improving. Differentials include but are not limited to tension headache, migraine headache, intracranial bleed, temporal arteritis. Patient's age and physical exam are inconsistent with temporal arteritis. She is responding to therapy. I do not feel she is suffering from lumbar puncture cryptic bleed. ER precautions discussed. Departure Disposition: HOME / SELF CARE / HOMELESS Impression: Primary Impression: Headache Condition: Improved Discharge Instructions: Headache Referrals: NO PRIMARY CARE PROVIDER (PCP) Signature Scribe Signature: No scribe Attestation: The note accurately reflects work and decisions made by me.Joni Delgado MD 01/14/25 02:15 JONI DELGADO MD Jan 14, 2025 00:06
[2025-01-14] MEDS: normal saline 1000ml 1,000 ML IV ONE (00:25)
[2025-01-14] MEDS: acetaminophen 1,000mg/100ml IV 100 ML IV ONE (00:26)
[2025-01-14] MEDS: metoclopramide 5 mg/ml inj IV ONE (00:26)
--- NOTE | 2025-01-14 00:28 | RADIOLOGY REPORT ---
CLINICAL HISTORY: forde TECHNIQUE: Helical imaging carried out from skull base to vertex without intravenous contrast. This e xam was performed according to our departmental dose optimization program. Up-to-date CT equipment an d radiation dose reduction techniques are utilized as appropriate. CTDIVol: 61.12 mGy DLP: 1122.41 mGy-cm WID: COMPARISON: None FINDINGS: The ventricles and subarachnoid spaces are normal in size and configuration. There is no midline salas ft or mass effect. The ziegler white matter interfaces are maintained. The basal cisterns are patent. Th ere is no evidence of acute intracranial hemorrhage or extra-axial fluid collection. The mastoid air cells and visualized paranasal sinuses are well-aerated. IMPRESSION: 1. No acute intracranial abnormality.
[2025-01-14] MEDS: ketorolac trometh 15mg/ml vial 15 MG/ML ML IV ONE (01:05)
[2025-01-14] MEDS: haloperidol lactate 5mg/ml inj IM ONE (02:28)
[2025-01-14 02:37] VITALS: BP 134/80; PULSE 80; RESP 16; TEMP 98.1; O2SAT 99
== END 2025-01-14 02:45 | disposition home or self-care (01) ==
LOC: ER 20:58
DX: R51.9 Headache, unspecified (principal); F41.9 Anxiety disorder, unspecified; E11.9 Type 2 diabetes mellitus without complications; Z87.442 Personal history of urinary calculi; Z88.8 Allergy status to other drugs, medicaments and biological substances; Z79.899 Other long term (current) drug therapy
CPT/HCPCS: 70450; 96361; 96372; 96374; 96375; 99285; J0131; J1200; J1630; J1885; J2765; J7030